=== PATIENT | male | born 1970 | race Caucasian/White ===

== ENCOUNTER 2017-12-14 16:03 | Emergency (ER) | payer SELFPAY ==
[~2017-12-14] VITALS: Ht 177.8 cm; Wt 80.0 kg
[2017-12-14 16:23] VITALS: BP 126/65; PULSE 81; RESP 16; TEMP 99.1; O2SAT 99
== END 2017-12-14 20:24 | disposition left against medical advice (07) ==
LOC: NED 16:03
DX: Z53.21 Procedure and treatment not carried out due to patient leaving prior to being seen by health care provider (principal)
CPT/HCPCS: 99281